=== PATIENT | female | born 1995 | race Hispanic/Latino ===

== ENCOUNTER 2016-05-14 13:06 | Outpatient (CLI) | payer MEDICAID ==
[2016-05-14] MEDS ORDERED: LACTATED RINGERS 500 ML IV ONE (13:36)
[2016-05-14 14:31] VITALS: BP 115/72
[2016-05-14 14:39] LABS: Urine Drugs of Abuse Note Disclamer
[2016-05-14 14:55] LABS: Bilirubin,Urine Negative (Negative); Ketones,Urine >80 mg/dL (Negative)
[2016-05-14 14:56] LABS: Blood,Urine Moderate (Negative); Leukocyte Esterase,Urine Moderate (Negative); Nitrite,Urine Positive (Negative); PH,Urine 6.5 (5.0-7.0)
[2016-05-14 15:03] LABS: Bacteria,Urine 4+ /HPF (Negative); Mucus,Urine 3+ /HPF
[2016-05-14 15:06] LABS: WBC,Urine > 182.0 /HPF (0.0-6.0)
[2016-05-14] MEDS ORDERED: ZOFRAN IV ONE (15:19)
[2016-05-14] MEDS ORDERED: LACTATED RINGERS 1,000 ML IV ONE (15:19)
[2016-05-14] MEDS ORDERED: ceFAZolin 2 GM in NACL 0.9% 100 ML IV ONE (15:19)
[2016-05-14 15:55] LABS: Basophils % (Auto) 0.8 % (0.0-1.8); Eosinophils % (Auto) 0.2 % (0.0-4.3); Hemoglobin 11.2 gm/dl (10.1-14.3); Mean Corpuscular HGB Conc 33 % (30-34); Mean Corpuscular Hemoglobin 28 pg (28-32); Mean Corpuscular Volume 85 fl (79-97); Platelet Count 181 K/mm3 (140-440); Red Cell Distribution Width 13.7 % (13.2-15.2); White Blood Count 13.2 K/mm3 (4.5-11.0)
== END 2016-05-14 17:45 | disposition home or self-care (01) ==
LOC: TRG 13:06
PROVIDERS: ATTEND Obstetrics & Gynecology
DX: O77.9 Labor and delivery complicated by fetal stress, unspecified (principal); O47.9 False labor, unspecified; Z3A.00 Weeks of gestation of pregnancy not specified
CPT/HCPCS: 36415; 59025; 80307; 81001; 85025; 96360; 96361; 96365; 96374; J0690; J2405; J7120

== ENCOUNTER 2016-06-02 13:06 | Outpatient (CLI) | payer MEDICAID | END 2016-06-02 14:41 | disposition home or self-care (01) | LOC: TRG 13:06 | PROVIDERS: ATTEND Obstetrics & Gynecology Gynecology | DX: O47.1 False labor at or after 37 completed weeks of gestation (principal); Z3A.39 39 weeks gestation of pregnancy | CPT/HCPCS: 59025 ==